=== PATIENT | male | born 1950 | race Native Hawaiian/Other Pacific Islander ===

== ENCOUNTER 2019-04-20 17:57 | Emergency (ER) | payer OTHER ==
[~2019-04-20] VITALS: Ht 175.3 cm; Wt 89.8 kg
[2019-04-20 18:41] LABS: PLATELET COUNT 192 K/uL (142-355)
[2019-04-20 20:00] VITALS: BP 90/62; TEMP 98.9
[2019-04-20] MEDS ORDERED: TYLENOL325 M1 PO (22:47)
[2019-04-20] MEDS ORDERED: ASPIRIN 81 LOW81 MG PO (22:48)
[2019-04-20] MEDS ORDERED: LORA1TAB17 PO (22:48)
[2019-04-20] MEDS ORDERED: LIPITOR20 MG PO (22:49)
[2019-04-20] MEDS ORDERED: DIVA500T2 PO (22:50)
[2019-04-20] MEDS ORDERED: DOCU100C10 PO (22:50)
[2019-04-20] MEDS ORDERED: CARB25TA29 PO (22:50)
[2019-04-20] MEDS ORDERED: ACID CONTROL MA20 MG PO (22:52)
[2019-04-20] MEDS ORDERED: LEVEMIR FL100 UNIT/M SC (22:53)
[2019-04-20] MEDS ORDERED: FISH OIL500 M1 PO (22:53)
[2019-04-20] MEDS ORDERED: LEVO-T150 MCG PO (22:54)
[2019-04-20] MEDS ORDERED: METO50TA27 PO (22:55)
[2019-04-20] MEDS ORDERED: NOVOLOG FL100 UNIT/M SC (22:58)
[2019-04-20] MEDS ORDERED: POLY GLYCOL3350 M1 PO (22:59)
[2019-04-20] MEDS ORDERED: POLYMYXIN B/ IO (23:01)
[2019-04-20] MEDS ORDERED: VASOTEC5 MG PO (23:02)
[2019-04-20] MEDS ORDERED: VITAMIN D35000 UNI6 PO (23:02)
[2019-04-20] MEDS ORDERED: ZYPREXA ZYDI5 MG PO (23:03)
[2019-04-30] MEDS ORDERED: ELIQUIS5 MG PO (20:36)
[2019-04-30] MEDS ORDERED: DIVALPROEX500 MG PO (20:37)
[2019-04-30] MEDS ORDERED: ESCI10TA PO (20:39)
[2019-04-30] MEDS ORDERED: FLUC150T PO (20:41)
[2019-04-30] MEDS ORDERED: KP FOLIC ACID1 MG PO (20:42)
[2019-04-30] MEDS ORDERED: INSUINJP SC (20:43)
[2019-04-30] MEDS ORDERED: METO-837 PO (20:47)
[2019-04-30] MEDS ORDERED: NYSTCRE TOP (20:50)
[2019-04-30] MEDS ORDERED: OLANZAPINE5 MG PO (20:51)
[2019-04-30] MEDS ORDERED: 904272561 PO (20:57)
[2019-04-30] MEDS ORDERED: NITR0.4S SL (20:58)
== END 2019-04-20 20:00 | disposition other institution (70) ==
LOC: ED 17:57
PROVIDERS: Family Medicine
DX: R46.89 Other symptoms and signs involving appearance and behavior (principal); I10 Essential (primary) hypertension; Z04.6 Encounter for general psychiatric examination, requested by authority
CPT/HCPCS: 36415; 80053; 81000; 85027; 93005; 99285

== ENCOUNTER 2019-04-22 08:58 | Inpatient (IN) | payer OTHER ==
[~2019-04-22] VITALS: Ht 180.3 cm; Wt 91.3 kg
[2019-04-22] VITALS (20 sets, daily range): BP systolic 106–179; BP diastolic 44–118; TEMP 97.6–99.1; Ht 180.3 cm; Wt 91.3 kg
[~2019-04-22 08:58] MED LIST: ACID CONTROL MA20 MG PO; ASPIRIN 81 LOW81 MG PO; CARB25TA29 PO; DIVA500T2 PO; DOCU100C10 PO; FISH OIL500 M1 PO; LEVEMIR FL100 UNIT/M SC; LEVO-T150 MCG PO; LIPITOR20 MG PO; LORA1TAB17 PO; METO50TA27 PO; NOVOLOG FL100 UNIT/M SC; POLY GLYCOL3350 M1 PO; POLYMYXIN B/ IO; TYLENOL325 M1 PO; VASOTEC5 MG PO; VITAMIN D35000 UNI6 PO; ZYPREXA ZYDI5 MG PO
[2019-04-22 09:36] LABS: POTASSIUM 4.6 mmol/L (3.6-5.2)
[2019-04-22 09:53] LABS: PARTIAL THROMBOPLASTIN TIME 27.4 SECONDS (24.5-33.6)
[2019-04-22 11:06] LABS: PLATELET COUNT 143 K/uL (142-355)
--- NOTE | 2019-04-22 15:23 | NUR ---
PT AWAKE, A&O TO SELF & KNOWS HE IS IN THE HOSPITAL. HR 78 NSR. PO METOPROLOL SUCCINATE 50 MG GIVEN WITH NO PROBLEM. 1537 LOVENOX 90MG GIVEN SQ PER ORDER.PT MOVING SELF IN BED. TURNS FROM BSCK TO SIDE, SCOOTS DOWN IN BED FREQUENTLY. ADULT BRIEF INTACT. FRANCO TO BSD WITH CL MED JAILENE URINE.
[2019-04-22 17:11] LABS: PLATELET COUNT 127 K/uL (142-355)
[2019-04-22] MEDS ORDERED: DIVALPROEX500 MG PO (17:13)
[2019-04-22] MEDS ORDERED: OLANZAPINE5 MG PO (17:16)
[2019-04-22] MEDS ORDERED: NYSTCRE TOP (17:17)
[2019-04-22] MEDS ORDERED: FLUC150T PO (17:18)
[2019-04-22] MEDS ORDERED: ESCI10TA PO (17:18)
[2019-04-22 17:22] LABS: PARTIAL THROMBOPLASTIN TIME 39.9 SECONDS (24.5-33.6)
[2019-04-22 17:23] LABS: POTASSIUM 4.4 mmol/L (3.6-5.2); SODIUM 144 mmol/L (136-145)
--- NOTE | 2019-04-22 17:36 | NUR ---
1245 REC'D PT VIA STRECTHER TO PCU. PT TRANSFERED TO BED X 2 STAFF. PT CALM OREINTED X 4. NO ACUTE DISTRESS NOTED. PT PLACED ON CARIDAC MONIOTR. PT'S HR NOTED TO BE SR AT 91. PT DENEIS ANY PAIN AT TIME OF ADMINSSION. ALL VS WNL. DR LEWIS NOTIFIED OF PT'S ARRIVAL TO PCU. 1300 HR NOTED TO BE ELVATED WITH A RATE 168. DR LEWIS NOTIFIED AND NEW ORDERS REC'D TO GIVE LABETOLOL 10MG SIVP AND CON'T TO MONITOR. VS 137/68 P 168-98 RESP 20 AND SATS 94% ON RA. O2 AT 2L PER NC APPLIED. 1310 RATE CONTROLLED AT 86 PAST IVP OF LABETOLOL 10MG IV. PT'S BP 140/70. INFORMED WILL CON'T TO MONITOR. 1335 PT HR INCREASED AT THIS TIME WITH A RATE OF 164. PT DENEIS ANY CO DURING EPISODE OF ELEVATED HR. NOTIFIED AND ORDERS REC'D TO TRANSFER PT TO ICU AT THIS TIME. RESP NOTIFIED FOR EKG. 1340 LABETOLOL 10MG IVP GIVEN AT THIS TIME. 1350 HR NOTED TO BE SR WITH A RATE OF 80'S. DR LEWIS IN ICU AT AT THIS TIME. NEW ORDERS REC'D AT THIS TIME FOR ICU . 1500 PT NOTED TO HAVE REDNESS NOTED TO BILAT GROIN AND SCROTUM AREA. SEVERAL SMALL WOUNDS/LESIONS NOTED TO RT HIP/BUTTOCK AREA. NO DRAINAGE NOTED. LESIONS NOTED TO BE CLOSED. PT CAME FROM ER WITH 16 CANADIAN FRANCO INTAACT. APPROX 300ML OF JAILENE COLORED URINE NOTED TO FRANCO BAG AT TIME OF ADMINSSION
--- NOTE | 2019-04-22 18:11 | NUR ---
PT SITTING IN HF FEEDING SELF DINNER. PT REQUEST THAT HIS MEAT BE CUT UP. ASSISTED PT. IV INFUSING INTOR FA 22G IV AT 70 ML/HR.
[2019-04-22] MEDS ORDERED: KP FOLIC ACID1 MG PO (19:32)
[2019-04-22] MEDS ORDERED: RANI150T78 PO (19:33)
[2019-04-23] VITALS (23 sets, daily range): BP systolic 94–132; BP diastolic 43–69; TEMP 97.5–98.4
--- NOTE | 2019-04-23 02:27 | NUR ---
BLOOD DRAWN PER LAB. PT IS RESTING WITH EYES CLOSED. SNORING RESPIRATIONS. CM SHOWING SINUS RHYTHM. NS INFUSING ORDERED. FRANCO CATHETAR INTACT WITH DARK YELLOW URINE DRAINING. BP IS 102/52. HR IS 64.
[2019-04-23 05:24] LABS: PLATELET COUNT 108 K/uL (142-355)
[2019-04-23 05:33] LABS: POTASSIUM 4.6 mmol/L (3.6-5.2); SODIUM 145 mmol/L (136-145)
--- NOTE | 2019-04-23 08:20 | NUR ---
DR CABELLO IN TO SEE PT
--- NOTE | 2019-04-23 09:32 | NUR ---
PT COUGHS AFTER TAKING IN LIQUIDS. WILL NOTIFY S.TPrachi AND
--- NOTE | 2019-04-23 10:00 | NUR ---
ULTRASOUND PERFORMED ON KIDNEYS
--- NOTE | 2019-04-23 11:50 | NUR ---
ST IN TO SEE PT
--- NOTE | 2019-04-23 12:54 | NUR ---
SHERIDAN MANJARREZ AT BEDSIDE FOR EVALUATION.
--- NOTE | 2019-04-23 13:45 | NUR ---
SVT 157 NOTED ON MONITOR. NOT SUSTAINED MORE THAN 1MIN. MD NOTIFIED. NO NEW ORDERS AT THIS TIME. PT RESTING AT TIME OF OCCURENCE
--- NOTE | 2019-04-23 14:50 | NUR ---
DR CABELLO IN TO SEE PT
--- NOTE | 2019-04-23 18:00 | NUR ---
PT SITTING UP IN BED EATING. PT IS CUED TO STOP DRINKING AFTER TAKING A SIP PER S.T. ORDER IN ORDER NOT TO CHOKE ON LIQUIDS, PT IS TOLERATING LIQUIDS. DR CABELLO IN TO SEE PT. PT HAVING CONVERSATION WITH MD. NO AGGRESSIVE BEHAVIOR NOTED DURING THE SHIFT. PT DIDNT WANT HIS BLOOD DRAWN EARLIER IN DAY BUT DID ALLOW THAT TO BE DONE AFTER SEVERAL PLEAS FROM STAFF.
--- NOTE | 2019-04-23 20:00 | NUR ---
PM ASSESSMENT COMPLETED. PT IS ALERT AND COOPERTIVE. SR ON LAMINATION OPERATOR AT 66 YO 70 BPM. FRANCO 16 HEBREW INTACT WITH CLEAR JAILENE URINE DRAINING. DECREASE COUGH AT PRESENT. PT ABLE TO TOLERATE LIQUIDS WITH LESS DIFFICULTY. TAUGHT PT TO TAKE SMALL SIPS AND PT DEMONSTRATED. ADULT DIAPER INTACT. PT IS CLEAN AND DRY. NO OPEN ABRASIONS OR SKIN NOTED.
[2019-04-24] VITALS (13 sets, daily range): BP systolic 101–154; BP diastolic 49–75; TEMP 97.4–98.3
--- NOTE | 2019-04-24 02:00 | NUR ---
EYE DROPS ADMINISTERED ORDERED. PT AWAKE AND AROUSES EASILY. RESP ARE EVEN AND NONLABORED. USING O2 AT 2L VIA NC. SR ON CM AT A RATE OF 75 BPM. NO ECTOPY NOTED. PT WITHOUT COMPLAINTS OF PAIN OR DISCOMFORT.
[2019-04-24 04:52] LABS: PLATELET COUNT 107 K/uL (142-355)
[2019-04-24 05:03] LABS: POTASSIUM 5.4 mmol/L (3.6-5.2); SODIUM 143 mmol/L (136-145)
--- NOTE | 2019-04-24 05:51 | NUR ---
PT HAD DRANK 2 CUPS OF COFFEE WITH CREAM AND 2 ARTIFICIAL SWEETNERS. BS 428. NOVALOG 10 UNITS GIVEN SQ TO RIGHT DELTOID. WILL RECHECK. REMOVED PT'S ADULT DIAPER FOR SCROTUM/PENIS/ AND BUTTOCKS TO BE OPEN TO AIR TO HEAL. AREAS ARE LESS RED THAN PRIOR ASSESSMENT. HEALING. PT TOLERATING PO LIQUIDS. PT ALERT AND SR ON CM.
--- NOTE | 2019-04-24 07:08 | NUR ---
DR. CABELLO PRESENT AND NEW ORDERS GIVEN. PT IS ALERT AND FOLLOWS INSTRUCTIONS. REPORT TO Chuckie CADENA RN.
--- NOTE | 2019-04-24 07:21 | NUR ---
DR CABELLO IN TO SEE PT EARLIER, PT COOPERATIVE, PLEASANT, WATCHING TV, IVF INFUSING WITHOUT DIFFICULTY, NO REDNESS OR EDEMA NOTED TO IV SITE PT ASKED FOR DT SODA, DRINKING SODA WITHOUT DIFFICULTY, PT REQUIRES CUEING TO STOP IN BETWEEN SIPS TO TAKE A BREATH, LUNG SOUNDS CLEAR TO AUSULTATION, HR IN 90'S, SR, RESPIRATORY IN TO TAKE BREATHING TREATMENT OFF, ALSO REMOVED NASAL CANNULA, WILL MONITOR O2 SAT. PT IS TURNED TO HIS LEFT SIDE WITH LEGS DRAWN UP, STRETCHES THEM OUT WITHOUT DIFFICULTY, NAD NOTED, NO C/O VOICED. REDNESS TO [place] AREA, CALAZIME CREAM APPLIED TO AREA AND LEFT OPEN TO AIR, 16FR FRANCO TO BSD WITH CLEAR JAILENE URINE IN DRAINAGE BAG.
--- NOTE | 2019-04-24 08:00 | NUR ---
BS [address] CABELLO, ORDERS RECIEVED FOR 20 UNITS OF INSULIN, INSULIN GIVEN, WILL RECHECK @[address] CABELLO ORDER
--- NOTE | 2019-04-24 09:12 | NUR ---
PT SITTING UP IN BED EATING BREAKFAST, NAD NOTED
--- NOTE | 2019-04-24 10:00 | NUR ---
RECHECKED PT BLOOD SUGAR- 445, NOTIFIED DR Lynette CABELLO, NOVOLOG 20 UNITS ORDERED AND GIVEN SQ, WILL RECHECK AT 1200
--- NOTE | 2019-04-24 10:02 | NUR ---
PT RESTING QUIETLY WITH EYES CLOSED, IV INFUSING WITHOUT DIFFICULTY, V/S WNL, PT AWAKENS EASILY TO VERBAL STIMULI, NAD NOTED, PARK INTERPRETIVE SPECIALIST ASKED PT TO TURN TO RT SIDE, PT ROLLED OVER AND CLOSED EYES, WILL CONTINUE TO MONITOR
--- NOTE | 2019-04-24 11:05 | NUR ---
PT RESTING QUIETLY WITH EYES CLOSED, NAD NOTED, AWAKENS EASILY TO VERBAL STIMULI, V/S WNL, NO C/O VOICED AT THIS TIME, IVF INFUSING WITHOUT DIFFICULTY, WILL CONTINUE TO MONITOR
--- NOTE | 2019-04-24 14:15 | NUR ---
TRANSFERRED PT TO ROOM 1129 ON MED/SURG/PCU FLOOR, ALL BELONGINGS TAKEN TO NEW ROOM, IVF INFUSING WITHOUT DIFFICULTY, FRANCO CATHETER TO BSD INTACT, PT TAKEN BY WHEELCHAIR, SOME DIFFICULTY GETTING INTO AND OUT OF THE WHEELCHAIR, NEEDED MAX ASSIST X2 PEOPLE. PT ORIENTED TO NEW ROOM AND TV TURNED TO PREFERRED CHANNEL, NO C/O VOICED AT THIS TIME, NAD NOTED.
--- NOTE | 2019-04-24 14:15 | NUR ---
PT TRANSFERRED TO FLOOR, REPORT GIVEN TO SASCHA TUCKER LPN.
--- NOTE | 2019-04-24 19:41 | NUR ---
1415 REC'D PT TO FLOOR. REC'D REPORT FROM NANY MANDUJANO.
[2019-04-25 04:00] VITALS: BP 165/82; TEMP 98.1
--- NOTE | 2019-04-25 04:57 | NUR ---
04/25/19 0440 BARRIER CREAM APPLIED TO SCROTUM AND BUTTOCKS AREA.CC
[2019-04-25 08:00] VITALS: BP 136/73; TEMP 97.4
--- NOTE | 2019-04-25 10:57 | NUR ---
IV D/C'D CANNULA INTACT. GOWN CHANGED. FACE BATHED.ADULT BRIEF CLEAN.
--- NOTE | 2019-04-25 11:57 | NUR ---
REPORT CALLED TO SAAD BETANCOURT RN. WILL TRANSFER PT AFTER LUNCH.
[2019-04-25 12:00] VITALS: BP 150/74; TEMP 97.8
--- NOTE | 2019-04-25 13:25 | NUR ---
PT D/C'D STABLE VIA VISHAL TO [facility] PER [facility] STAFF.
[2019-04-25] MEDS ORDERED: LEVO250T2 PO (13:36)
[2019-04-25] MEDS ORDERED: PANTOPRAZOLE 40MG TA PO (14:01)
[2019-04-25] MEDS ORDERED: NITROSTAT0.4 MG SL (14:02)
[2019-04-25] MEDS ORDERED: METO-837 PO (14:03)
[2019-04-25] MEDS ORDERED: PHENELX32 (14:05)
[2019-04-25] MEDS ORDERED: ELIQUIS5 MG PO (14:06)
[2019-04-25] MEDS ORDERED: LORA1TAB17 PO (14:06)
[2019-04-25] MEDS ORDERED: INSUINJP SC (14:08)
[2019-04-25] MEDS ORDERED: XOPENEX HFA INH (14:10)
[2019-04-25] MEDS ORDERED: INSUINJ20 SC (14:11)
[2019-04-30] MEDS ORDERED: ELIQUIS5 MG PO (20:36)
[2019-04-30] MEDS ORDERED: DIVALPROEX500 MG PO (20:37)
[2019-04-30] MEDS ORDERED: ESCI10TA PO (20:39)
[2019-04-30] MEDS ORDERED: FLUC150T PO (20:41)
[2019-04-30] MEDS ORDERED: KP FOLIC ACID1 MG PO (20:42)
[2019-04-30] MEDS ORDERED: INSUINJP SC (20:43)
[2019-04-30] MEDS ORDERED: METO-837 PO (20:47)
[2019-04-30] MEDS ORDERED: NYSTCRE TOP (20:50)
[2019-04-30] MEDS ORDERED: OLANZAPINE5 MG PO (20:51)
[2019-04-30] MEDS ORDERED: 904272561 PO (20:57)
[2019-04-30] MEDS ORDERED: NITR0.4S SL (20:58)
== END 2019-04-25 13:20 | disposition other institution (70) | DRG 308 ==
LOC: ED 08:58 → MED/SURG 10:00 → ICU 10:00 → MED/SURG 13:03 → ICU 14:46 → MED/SURG 04-24 09:00
PROVIDERS: Family Medicine; Internal Medicine; ADMIT Hospitalist
DX: I47.1 Supraventricular tachycardia (principal); E05.81 Other thyrotoxicosis with thyrotoxic crisis or storm; F02.81 Dementia in other diseases classified elsewhere, unspecified severity, with behavioral disturbance; F31.5 Bipolar disorder, current episode depressed, severe, with psychotic features; N39.0 Urinary tract infection, site not specified; N17.9 Acute kidney failure, unspecified; J44.1 Chronic obstructive pulmonary disease with (acute) exacerbation; D72.828 Other elevated white blood cell count; G20 Parkinson's disease; E78.49 Other hyperlipidemia; K21.9 Gastro-esophageal reflux disease without esophagitis; E03.8 Other specified hypothyroidism; D69.6 Thrombocytopenia, unspecified; L98.8 Other specified disorders of the skin and subcutaneous tissue; I51.7 Cardiomegaly; E11.22 Type 2 diabetes mellitus with diabetic chronic kidney disease; I12.9 Hypertensive chronic kidney disease with stage 1 through stage 4 chronic kidney disease, or unspecified chronic kidney disease; N18.3 Chronic kidney disease, stage 3 (moderate)
CPT/HCPCS: 36415; 80053; 81000; 82550; 82570; 83880; 84132; 84300; 84443; 84484; 85027; 85379; 85610; 85730; 87077; 87086; 87088; 87186; 93005; 94640; 94664; 94760; 96365; 96375; 96376; 99284; J0456; J1650; J1815; J1956; J2930; J3490